=== PATIENT | female | born 1975 | race Caucasian/White ===

== ENCOUNTER → 2021-02-16 14:49 | Outpatient (CLI) | payer OTHER, SELFPAY ==
--- NOTE | ~2021-02-16 | XR_ITS ---
XR lumbar spine min 4V DATE: 02/16/2021 15:27 INDICATION: Low back pain TECHNIQUE: AP, lateral, coned lateral lumbosacral views. Flexion and extension lateral views. COMPARISON: None FINDINGS: Surgical clips overlie the right upper quadrant, consistent with cholecystectomy. There is minimal degenerative spurring of the lumbar spine. Lumbar levels interspaces are well preser viv. No fracture or bone destruction or spondylolisthesis. The sacroiliac joints appear normal. IMPRESSION: Minimal degenerative spurring Reviewed, dictated and finalized at location A.
--- NOTE | ~2021-02-16 | MR_ITS ---
EXAMINATION: MR lumbar spine wo [facility] EXAM DATE: 02/16/2021 16:31 INDICATION: Low back pain and numbness. Tingling down both legs. TECHNIQUE: Multi-sequential, multiplanar MR images of the lumbar spine were obtained without contrast . Sagittal T1, T2, T2 fat saturation images. Axial T2 weighted images. There is no prior study for comparison. FINDINGS: The vertebral bodies are aligned in the AP dimension. Vertebral body and disc heights are w ell-maintained. There are no suspicious marrow signal abnormalities. The conus medullaris terminates at the L1/2 level and has normal signal intensity and morphology. Paraspinal soft tissue is unremark able. Level by level evaluation: T12-L1: Disc does not extend beyond the endplate margin. Facet arthropathy: None. Neural foraminal stenosis: Mild. Central canal stenosis: No stenosis. L1-L2: Disc does not extend beyond the endplate margin. Facet arthropathy: None. Neural foraminal stenosis: Mild. Central canal stenosis: No stenosis. L2-L3: Disc does not extend beyond the endplate margin. Facet arthropathy: Mild. Neural foraminal stenosis: No stenosis. Central canal stenosis: No stenosis. L3-L4: There is a mild diffuse disc bulge. Facet arthropathy: Mild. Neural foraminal stenosis: Mild bilateral. Central canal stenosis: No stenosis. L4-L5: There is a mild diffuse disc bulge. Facet arthropathy: Mild to moderate. Neural foraminal stenosis: Mild bilateral. Central canal stenosis: No stenosis. L5-S1: There is a minimal diffuse disc bulge. Facet arthropathy: Mild to moderate. Neural foraminal stenosis: Mild left. Central canal stenosis: No stenosis. IMPRESSION: Overall mild lumbar spondylosis. Reviewed, dictated and finalized at location G.
--- NOTE | ~2021-02-16 | MR_ITS ---
EXAMINATION: MR cervical spine wo con EXAM DATE: 02/16/2021 16:31 INDICATION: Cervicalgia. Neck pain. Tingling in right arm and fingers. TECHNIQUE: Multi-sequential, multiplanar MR images of the cervical spine were obtained without contra st. Axial T2, axial T2 MERGE sequence. Sagittal T1, T2, T2 fat saturation images also obtained. Th ere is no prior study for comparison. FINDINGS: There is mild disc disease at C6-7. The vertebral body and disc heights are otherwise well maintained. The vertebral bodies are aligned in the AP dimension. The spinal cord signal intensit y and intrinsic morphology is normal. Cervicomedullary junction is normal in appearance. There are no suspicious marrow signal abnormalities. Paraspinal soft tissue is unremarkable. Level by level evaluation: C2-C3: Disc does not extend beyond the endplate margin. Uncovertebral joint arthropathy: None. Facet joint arthropathy: Minimal bilateral. Neural foraminal stenosis: No stenosis. Central canal stenosis: No stenosis. C3-C4: Disc does not extend beyond the endplate margin. Uncovertebral joint arthropathy: Mild bilateral. Facet joint arthropathy: Mild bilateral. Neural foraminal stenosis: No stenosis. Central canal stenosis: No stenosis. C4-C5: Disc does not extend beyond the endplate margin. Uncovertebral joint arthropathy: Mild to moderate left, mild right. Facet joint arthropathy: Mild bilateral. Neural foraminal stenosis: Minimal left. Central canal stenosis: No stenosis. C5-C6: Disc does not extend beyond the endplate margin. Uncovertebral joint arthropathy: Mild to moderate left, mild right. Facet joint arthropathy: Mild to moderate left, mild right. Neural foraminal stenosis: Mild left, minimal right. Central canal stenosis: No stenosis. C6-C7: There is a mild diffuse disc bulge. Uncovertebral joint arthropathy: Mild to moderate bilateral. Facet joint arthropathy: Mild bilateral. Neural foraminal stenosis: Mild to moderate left, minimal right. Central canal stenosis: Mild. C7-T1: Disc does not extend beyond the endplate margin. Uncovertebral joint arthropathy: None. Facet joint arthropathy: Mild. Neural foraminal stenosis: No stenosis. Central canal stenosis: No stenosis. IMPRESSION: 1. Mild to moderate mid cervical predominant spondylosis. Reviewed, dictated and finalized at location G.
--- NOTE | ~2021-02-16 | XR_ITS ---
XR sacrum coccyx min 2V DATE: 02/16/2021 15:27 INDICATION: Sacrococcygeal disorder. Low back pain. TECHNIQUE: AP, angled AP and lateral views COMPARISON: None FINDINGS: The pubic symphysis and sacroiliac joints are intact. No sacral or coccygeal fracture or elizabeth ne destruction is evident. IMPRESSION: Negative Reviewed, dictated and finalized at location A. IMPRESSION: Negative
== END ==
PROVIDERS: Visit Provider Nurse Practitioner Family
DX: M53.3 Sacrococcygeal disorders, not elsewhere classified (principal); M47.892 Other spondylosis, cervical region; M47.896 Other spondylosis, lumbar region
CPT/HCPCS: 72110; 72141; 72148; 72220

== ENCOUNTER 2022-09-11 17:28 | Emergency (ER) | payer OTHER, SELFPAY ==
--- NOTE | ~2022-09-11 | XR_ITS ---
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 RESULT: Lines, tubes, and devices: None. Lungs and pleura: Ill-defined subsegmental airspace disease projecting over the right lower lung. Cardiomediastinal silhouette: Stable. Other: No acute osseous or upper abdominal finding. IMPRESSION: Subsegmental right lower lung opacity may reflect atelectasis or the consolidation of pneumonia. Reviewed, dictated and finalized at location K. OGEN OPERATOR IMPRESSION: Subsegmental right lower lung opacity may reflect atelectasis or the consolidat ion of pneumonia.
[2022-09-11 17:36] VITALS: BP 152/90; PULSE 133; RESP 20; TEMP 36.4; O2SAT 100
--- NOTE | 2022-09-11 18:02 | ECG_ITS ---
Measurements Intervals [place] Rate: 123 P: 60 OR: 144 QRS: 38 QRSD: 86 T: 50 QT: 321 QTc: 461 Interpretive Statements SINUS TACHYCARDIA LOW QRS VOLTAGE IN PRECORDIAL LEADS [QRS DEFLECTION < 1.0 mV IN CHEST LEADS] ABNORMAL RHYTHM ECG NO PREVIOUS ECG AVAILABLE FOR COMPARISON Electronically Signed On 09-12-2022 15:20:02 BASEBALL WINDER by Toby Ventura M.D.
[2022-09-11 18:11] VITALS: PULSE 121
--- NOTE | 2022-09-11 18:22 | ED.CHESTPAIN ---
HPI - Chest Pain General Chief Complaint: Chest Pain <Caprice Andrew Garcia III, DO - Last Filed: 09/27/22 11:04> Stated Complaint: shortness of breath and chest pain x 2 weeks. <Caprice Andrew Garcia III, DO - Last Filed: 09/27/22 11:04> Time Seen by Provider: 09/11/22 17:46 <Caprice Andrew Garcia III, DO - Last Filed: 09/27/22 11:04> History of Present Illness HPI narrative: Pt presents with chest tightness to left chest into her left arm and neck since before 1200 today constant. Pt says it is mild. Pt has CPTSD and often has sharp anterior chest wall pain that she has been told is not cardiac. Pt still has those pains but she says she has those all the time. Pt describes those as sharp and short in duration. Pt says she has some SOB with exertion. Pt has not been on long trips but says her legs hurt sometimes. Pt says she tends to run a fast HR. Pt diagnosed with covid last week. <Caprice Andrew Garcia III, DO - Last Filed: 09/27/22 11:04> Related Data Allergies/Adverse Reactions: Allergies Allergy/AdvReac Type Severity Reaction Status Date / Time amoxicillin Allergy Unknown RASH Verified 09/11/22 18:11 clavulanic acid Allergy Unknown RASH Verified 09/11/22 18:11 Influenza Virus Vaccines Allergy Unknown Swelling Verified 09/11/22 18:11 <Caprice Andrew Garcia III, DO - Last Filed: 09/27/22 11:04> Review of Systems Review of Systems: All systems reviewed & are unremarkable except as noted in HPI and below <Caprice Andrew Garcia III, DO - Last Filed: 09/27/22 11:04> Exam Const: General: healthy appearing <Caprice Andrew Garcia III, DO - Last Filed: 09/27/22 11:04> Nutritional Appearance: well nourished <Caprice Andrew Garcia III, DO - Last Filed: 09/27/22 11:04> Orientation/consciousness: patient oriented x3 <Caprice Andrew Garcia III, DO - Last Filed: 09/27/22 11:04> Limitations: no limitations <Caprice Andrew Garcia III, DO - Last Filed: 09/27/22 11:04> Eyes: Conjunctivae: conjunctivae normal <Caprice Andrew Garcia III, DO - Last Filed: 09/27/22 11:04> Neck: Neck: normal visual inspection <Caprice Andrew Garcia III, DO - Last Filed: 09/27/22 11:04> Chest: Chest palpation & inspection: normal inspection of the chest <Caprice Andrew Garcia III, DO - Last Filed: 09/27/22 11:04> Resp: Effort & Inspection: normal respiratory effort <Caprice Andrew Garcia III, DO - Last Filed: 09/27/22 11:04> Auscultation: clear to auscultation bilaterally <Caprice Andrew Garcia III, DO - Last Filed: 09/27/22 11:04> Cardio: Rate: regular rate <Caprice Andrew Garcia III, DO - Last Filed: 09/27/22 11:04> Rhythm: regular rhythm <Caprice Andrew Garcia III, DO - Last Filed: 09/27/22 11:04> GI: Inspection: distended <Caprice Andrew Garcia III, DO - Last Filed: 09/27/22 11:04> Auscultation: normal bowel sounds <Caprice Andrew Garcia III, DO - Last Filed: 09/27/22 11:04> Skin: General skin exam: normal color <Caprice Andrew Garcia III, DO - Last Filed: 09/27/22 11:04> Rashes: no rashes <Caprice Andrew Garcia III, DO - Last Filed: 09/27/22 11:04> Neuro: General: patient oriented x3, moves all extremities and no focal motor deficits <Caprice Andrew Garcia III, DO - Last Filed: 09/27/22 11:04> Cranial nerves: Yes Nystagmus not present <Caprice Andrew Garcia III, DO - Last Filed: 09/27/22 11:04> Speech: normal speech <Caprice Andrew Garcia III, DO - Last Filed: 09/27/22 11:04> Extrem: General: normal to inspection and no clubbing, cyanosis or edema <Caprice Andrew Garcia III, DO - Last Filed: 09/27/22 11:04> Psych: Mental Status: mental status grossly normal <Caprice Andrew Garcia III, DO - Last Filed: 09/27/22 11:04> Affect: normal affect <Caprice Andrew Garcia III, DO - Last Filed: 09/27/22 11:04> Attitude: cooperative <Caprice Andrew Garcia III, DO - Last Filed: 09/27/22 11:04> Course Course Emergency Course: pt stable turned over to dr hernandez at 1900 awaiting results <Caprice Andrew Garcia III, DO - Last Filed: 09/27/22 11:04> Vital Signs Vital signs: Vital Signs Temperatu
[2022-09-11 18:45] LABS: Basophils Percent Auto 0.4 % (0.2-1.2); Eosinophils Absolute Auto 0.1 K/mm3 (0-0.3); Eosinophils Percent Auto 1.5 % (0-4.4); Hematocrit 41.7 % (37.0-47.0); Hemoglobin 14.7 g/dL (12.0-15.0); Immature Granulocyte Absolute 0.02 K/mm3 (0.00-0.031); Immature Granulocyte Percent A 0.2 % (0-0.5); Lymphocytes Absolute Auto 4.22 K/mm3 (0.9-3.2); Lymphocytes Percent Auto 49.9 % (18.3-44.2); Mean Corpuscular HGB Conc 35.3 g/dl (32-36); Mean Corpuscular Volume 90.8 fl (80-100); Mean Platelet Volume 9.6 fl (7.4-10.4); Monocytes Absolute Auto 0.6 K/mm3 (0.1-0.6); Monocytes Percent Auto 7.2 % (2.6-8.5); Neutrophils Absolute Auto 3.4 K/mm3 (1.3-6.7); Neutrophils Percent Auto 40.8 % (45.5-73.1); Platelet Count Result 269 k/mm3 (150-375); Red Blood Count 4.59 M/mm3 (4.2-5.4); Red Cell Distribution Width 11.8 % (11.5-14.5); White Blood Count 8.5 K/mm3 (4.5-10.0)
[2022-09-11 18:57] LABS: Prothrombin Time 12.8 Seconds (11.1-14.7)
[2022-09-11 18:58] LABS: Partial Thromboplastin Time 25.4 SECONDS (22.3-36.8)
[2022-09-11 18:59] LABS: Alanine Aminotransferase 28 U/L (6-35); Albumin Level 4.3 g/dL (3.5-5.1); Alkaline Phosphatase 90 U/L (38-126); Anion Gap 8 mmol/L (8-16); Aspartate Amino Transferase 31 U/L (14-36); Bilirubin,Total 0.4 mg/dL (0.2-1.3); Blood Urea Nitrogen 8 mg/dL (7-17); Calcium 8.9 mg/dL (8.4-10.2); Carbon Dioxide 26 mmol/L (22-30); Chloride 100 mmol/L (98-107); Estimated CRCL calculation 120 ml/min; Estimated Glomerular Filt Rate > 60; Glucose 119 mg/dL (65-110); Lipase 125 U/L (23-300); Potassium 3.9 mmol/L (3.4-5.0); Sodium 134 mmol/L (137-145)
[2022-09-11 19:07] LABS: D Dimer < 0.27 ug/mL (<0.48)
[2022-09-11 19:11] LABS: NT Pro B Type Natriuretic Pept < 11 pg/mL (5-100); Troponin I < 0.012 ng/mL (0.000-0.034)
[2022-09-11] MEDS: ASPIRIN 81 MG CHEWABLE TABLET 324 MG PO (20:05)
[2022-09-11 20:09] VITALS: BP 136/79; PULSE 102; RESP 20; TEMP 36.8; O2SAT 98
== END 2022-09-11 20:12 | disposition home or self-care (01) ==
PROVIDERS: Emergency Provider Emergency Medicine
DX: J18.9 Pneumonia, unspecified organism (principal); R07.89 Other chest pain; R00.0 Tachycardia, unspecified
CPT/HCPCS: 36415; 71045; 80053; 83690; 83880; 84484; 85025; 85380; 85610; 85730; 93005; 99284; A9270

== ENCOUNTER → 2023-11-09 14:31 | Outpatient (CLI) | payer OTHER, SELFPAY ==
--- NOTE | ~2023-11-09 | MR_ITS ---
EXAMINATION: MR lumbar spine wo con DATE: 11/09/2023 15:17 INDICATION: Lumbar radiculopathy. TECHNIQUE: Magnetic resonance imaging (MRI) of the lumbar spine was performed without intravenous con trast. Sequences included sagittal T2-weighted FSE, sagittal T2-weighted FS FSE, sagittal T1-weighted FSE, and axial T2-weighted FSE. COMPARISON: Lumbar spine MRI 02/16/2021 FINDINGS: Bone alignment is normal. Vertebral body heights and intervertebral disc heights are normal . The distal spinal cord signal intensity is normal. The conus medullaris is at T12. The following di sc levels are specifically discussed: L1-L2: There is a right central extrusion. There is mild bilateral facet joint osteoarthritis. There is no neural foraminal stenosis. There is mild central canal stenosis. L2-L3: The disc does not extend beyond the endplate margin. There is mild bilateral facet joint osteo arthritis. There is no neural foraminal stenosis. There is no central canal stenosis. L3-L4: There is a right central protrusion. There is severe bilateral facet joint osteoarthritis. The re is no neural foraminal stenosis. There is mild central canal stenosis. L4-L5: There is a broad-based central protrusion. There is severe bilateral facet joint osteoarthriti s. There is mild bilateral neural foraminal stenosis. There is mild central canal stenosis. L5-S1: The disc does not extend beyond the endplate margin. There is moderate right and severe left f acet joint osteoarthritis. There is mild left neural foraminal stenosis. There is no central canal st enosis. IMPRESSION: 1. Mild lumbar spondylosis, stable from 02/16/2021. Reviewed, dictated and finalized at location A. TRICAL ESTIMATOR
--- NOTE | ~2023-11-09 | MR_ITS ---
EXAMINATION: MR cervical spine wo con DATE: 11/09/2023 15:08 INDICATION: Cervical radiculopathy. TECHNIQUE: Magnetic resonance imaging (MRI) of the cervical spine was performed without intravenous c ontrast. COMPARISON: Cervical spine MRI 02/16/2021 FINDINGS: Bone alignment is normal. Vertebral body heights are normal. There is mildly decreased disc height at C6-C7. The spinal cord signal intensity is normal. The following disc levels are specifica lly discussed: C2-C3: The disc does not extend beyond the endplate margin. There is mild left uncovertebral joint os teoarthritis. There is mild bilateral facet joint osteoarthritis. There is mild left neural foraminal stenosis. There is no central canal stenosis. C3-C4: The disc does not extend beyond the endplate margin. There is mild bilateral uncovertebral makenna nt osteoarthritis. There is mild bilateral facet joint osteoarthritis. There is mild left neural fora pete stenosis. There is no central canal stenosis. C4-C5: The disc does not extend beyond the endplate margin. There is moderate left uncovertebral join t osteoarthritis. There is mild right facet joint osteoarthritis. There is mild left neural foraminal stenosis. There is no central canal stenosis. C5-C6: The disc does not extend beyond the endplate margin. There is moderate bilateral uncovertebral joint osteoarthritis. There is mild right and moderate left facet joint osteoarthritis. There is mil d bilateral neural foraminal stenosis. There is no central canal stenosis. C6-C7: There is a central extrusion. There is moderate right and severe left uncovertebral joint oste oarthritis. There is mild right facet joint osteoarthritis. There is mild right and moderate left micah ral foraminal stenosis. There is mild central canal stenosis. C7-T1: The disc does not extend beyond the endplate margin. There is no uncovertebral joint osteoarth ritis. There is mild bilateral facet joint osteoarthritis. There is no neural foraminal stenosis. The re is no central canal stenosis. IMPRESSION: 1. Moderate left neural foraminal stenosis at C6-C7 with worsening from 02/16/2021. Otherwise stable m ild cervical spondylosis. Reviewed, dictated and finalized at location A. R SYSTEM ENGINEER IMPRESSION: 1. Moderate left neural foraminal stenosis at C6-C7 with worsening from 02/17/20 21. Otherwise stable mild cervical spondylosis.
== END ==
PROVIDERS: PCP Family Medicine; Visit Provider Nurse Practitioner Family
DX: M47.22 Other spondylosis with radiculopathy, cervical region (principal); M47.26 Other spondylosis with radiculopathy, lumbar region
CPT/HCPCS: 72141; 72148

== ENCOUNTER 2024-03-10 12:19 | Emergency (ER) | payer OTHER, SELFPAY ==
--- NOTE | ~2024-03-10 | CT_ITS ---
EXAMINATION: CT abdomen pelvis w con DATE: 03/10/2024 14:51 INDICATION: Right upper quadrant abdominal pain. Right flank pain. TECHNIQUE: Computed tomography (CT) of the abdomen and pelvis was performed with 100 mL Omnipaque 350 intravenous contrast. Automated exposure control and iterative reconstruction technique were employe d. The dose-length product was 1288.60 mGy-cm. COMPARISON: None. FINDINGS: The visualized portions of the lung bases demonstrate mild atelectasis. No pleural effusion . The heart size is normal. No pericardial effusion. The liver and spleen are normal. There are baig es of cholecystectomy. The pancreas, adrenal glands, and kidneys are normal. There are no dilated loo ps of bowel. The appendix is normal. There are no pathologically enlarged lymph nodes. There is no fr ee intraperitoneal fluid. There is mild thoracic and lumbar spondylosis. IMPRESSION: 1. No etiology for the patient's symptoms. Reviewed, dictated and finalized at location A.
[2024-03-10 12:49] VITALS: BP 144/81; PULSE 87; RESP 18; TEMP 36.3; O2SAT 100
--- NOTE | 2024-03-10 13:48 | ED.ABDPAIN ---
HPI - Abdominal Pain General Chief Complaint: Abdominal Pain <Vida Cline PA-C - Last Filed: 03/10/24 13:56> Stated Complaint: abd pain <Vida Cline PA-C - Last Filed: 03/10/24 13:56> Time Seen by Provider: 03/10/24 13:49 <Vida Cline PA-C - Last Filed: 03/10/24 13:56> Focused HPI: Patient is a 48 y/o female who presents to the ED with c/o RUQ abd pain. Patient reports having pain in her RUQ for the past 3 days. States pain has been progressively worsening, now radiating through to her R mid back. Pain worse with movement and sitting certain positions. She has not tried anything for pain. Mentions she has done a few new PT exercises this week, but otherwise denies any strenuous activity/heavy lifting. Denies N/V, diarrhea, constipation, urinary complaints, pleuritic pain, SOB, hx kidney stones. Patient notes FHx of liver and pancreas issues. She states she used to drink heavily, no longer drinks. GENERAL: Well-appearing, morbidly obese with BMI of 41.9, and in no acute distress. HEAD: Normocephalic, atraumatic. CHEST: Clear to auscultation. ?No respiratory distress. HEART: Regular rate and rhythm.? ABD: TTP in R lateral upper abdomen. No epigastric tenderness. Normoactive BS. NEURO: ?Alert and oriented x3. Patient screened in triage and initial orders placed.? ?Additional care and disposition to be based upon?diagnostic testing and treatment. <Vida Cline PA-C - Last Filed: 03/10/24 13:56> Source: patient <Vdia Cline PA-C - Last Filed: 03/10/24 13:56> Mode of arrival: ambulatory <Vida Cline PA-C - Last Filed: 03/10/24 13:56> Limitations: no limitations <KLAUDIA Medeiros Last Filed: 03/10/24 13:56> History of Present Illness HPI narrative: agree with HPI. <Jered Montoya MD - Last Filed: 03/10/24 19:26> Related Data Allergies/Adverse Reactions: Allergies Allergy/AdvReac Type Severity Reaction Status Date / Time amoxicillin Allergy Unknown RASH Verified 09/11/22 18:11 clavulanic acid Allergy Unknown RASH Verified 09/11/22 18:11 Influenza Virus Vaccines Allergy Unknown Swelling Verified 09/11/22 18:11 <Vida Cline PA-C - Last Filed: 03/10/24 13:56> Review of Systems Review of Systems: All systems reviewed & are unremarkable except as noted in HPI and below <Jered Montoya MD - Last Filed: 03/10/24 19:26> Constitutional: Constitutional: Reports no additional constitutional complaints <Jered Montoya MD - Last Filed: 03/10/24 19:26> ENT: Reports system reviewed and no additional complaints, except as documented <Jered Montoya MD - Last Filed: 03/10/24 19:26> Cardiovascular: Cardiovascular: Reports chest pain, Denies rapid heart rate and Denies radiating jaw, neck or arm pain <Jered Montoya MD - Last Filed: 03/10/24 19:26> Respiratory: Respiratory: Reports no additional respiratory complaints <Jered Montoya MD - Last Filed: 03/10/24 19:26> Gastrointestinal: Gastrointestinal: Reports no additional gastrointestinal complaints <Jered Montoya MD - Last Filed: 03/10/24 19:26> Musculoskeletal: Musculoskeletal: Denies back pain, Denies arthralgias and Denies joint swelling <Jered Montoya MD - Last Filed: 03/10/24 19:26> Integumentary/Breasts: Skin/Breast: Reports system reviewed and no additional complaints, except as docu <Jered Montoya MD - Last Filed: 03/10/24 19:26> Exam Narrative: GENERAL: Well-appearing, well-nourished, and in no acute distress. HEAD: Normocephalic, atraumatic. ENT: Mucous membranes moist. NECK: Supple. CHEST: Clear to auscultation. No respiratory distress. Tender palpation right lateral chest wall midaxillary line. HEART: Regular rate and rhythm. Normal peripheral pulses. ABDOMEN: Soft, nontender, nondistended. EXTREMITIES: Normal range of motion. No edema. SKIN: Warm, dry, no rash. NEURO: Alert and oriented x3. PSY
[2024-03-10 14:14] LABS: Basophils Percent Auto 0.2 % (0.2-1.2); Eosinophils Absolute Auto 0.1 K/mm3 (0-0.3); Hematocrit 40.6 % (37.0-47.0); Immature Granulocyte Absolute 0.03 K/mm3 (0.00-0.031); Immature Granulocyte Percent A 0.3 % (0-0.5); Lymphocytes Absolute Auto 3.37 K/mm3 (0.9-3.2); Lymphocytes Percent Auto 38.6 % (18.3-44.2); Mean Corpuscular HGB Conc 34.5 g/dl (32-36); Mean Corpuscular Hemoglobin 31.4 pg (26-34); Mean Platelet Volume 9.6 fl (7.4-10.4); Monocytes Absolute Auto 0.4 K/mm3 (0.1-0.6); Neutrophils Absolute Auto 4.8 K/mm3 (1.3-6.7); Neutrophils Percent Auto 54.9 % (45.5-73.1); Platelet Count Result 248 k/mm3 (150-375); Red Blood Count 4.46 M/mm3 (4.2-5.4); Red Cell Distribution Width 12.2 % (11.5-14.5); White Blood Count 8.7 K/mm3 (4.5-10.0)
[2024-03-10 14:25] LABS: Alanine Aminotransferase 27 U/L (6-35); Albumin Level 4.3 g/dL (3.5-5.1); Alkaline Phosphatase 69 U/L (38-126); Anion Gap 6 mmol/L (4-12); Aspartate Amino Transferase 23 U/L (14-36); Bilirubin,Total 0.7 mg/dL (0.2-1.3); Blood Urea Nitrogen 12 mg/dL (7-17); Calcium 9.3 mg/dL (8.4-10.2); Carbon Dioxide 24 mmol/L (22-30); Chloride 107 mmol/L (98-107); Estimated CRCL calculation 121 ml/min; Estimated Glomerular Filt Rate > 60; Glucose 138 mg/dL (65-110); Lipase 135 U/L (23-300); Potassium 3.7 mmol/L (3.4-5.0); Sodium 137 mmol/L (137-145)
[2024-03-10 15:02] LABS: Appearance Urine Clear (Clear); Bilirubin Urine Negative (Negative); Blood Urine Negative (Negative); Color Urine Yellow (Yellow); Glucose Urine UA Negative (Negative); Ketones Urine Negative (Negative); Leukocyte Esterase Ur Negative LEU/UL (Negative); Nitrate Urine Negative (Negative); Protein Urine Negative (Negative); Specific Grav Ur 1.021 (1.001-1.035); Urobilinogen Urine 0.2 mg/dL (<2.0); pH Urine 5.5 (5.0-9.0)
[2024-03-10] MEDS: ACETAMINOPHEN 500 MG TABLET 1000 MG PO (15:02)
[2024-03-10 15:20] LABS: Add Urine Microscopic? NO
[2024-03-10 15:34] VITALS: BP 120/92; PULSE 80; RESP 18; TEMP 36.8; O2SAT 98
== END 2024-03-10 16:21 | disposition home or self-care (01) ==
PROVIDERS: Physician Assistant; Emergency Provider Emergency Medicine; PCP Family Medicine
DX: R07.89 Other chest pain (principal); E66.01 Morbid (severe) obesity due to excess calories; Z68.41 Body mass index [BMI] 40.0-44.9, adult
CPT/HCPCS: 36415; 74177; 80053; 81003; 81025; 83690; 85025; 99284; A9270; Q9967